=== PATIENT | female | born 1930 | race Two or more races ===

== ENCOUNTER 2018-05-08 12:49 | Emergency (ER) | payer OTHER ==
[~2018-05-08] VITALS: Ht 162.6 cm; Wt 80.3 kg
[~2018-05-08 12:49] MED LIST: A THRU Z ADVAN1 EACH PO; AMLODIPINE BES2.5 MG PO; ANASTROZOLE1 MG PO; ASA81 MG PO; Asa-EC 81MG TAB PO; CALCIUM 600 +1 EAC2 PO; CATAFLAM50 MG PO; CENTRUM CH1 TAB.CHEW PO; FIBER LAX625 MG PO; FLUCONAZOLE PO; GLUCOSAMIN1 TAB.CHEW PO; ISOSORBIDE DIN2.5 MG SL; MIDRIN CAPSULE1 CAP PO; NEURONTIN300 MG PO; NORVASC 10 MG TAB PO; Neurontin PO; PAXIL CR25 MG PO; SEPTRA DS TABLE1 TAB PO; SIMVASTATIN5 MG PO; SODIUM CHLORIDE PO; TOPROL XL50 MG PO; Toprol Xl 25MG TAB PO; VITAMIN B-121000 MC2 SL; ZANTAC300 MG PO; ZoCOR 40MG TABLET PO
== END 2018-05-08 15:51 | disposition home or self-care (01) ==
LOC: ER 12:49
DX: S00.03XA Contusion of scalp, initial encounter (principal); S10.83XA Contusion of other specified part of neck, initial encounter; R42 Dizziness and giddiness; W18.09XA Striking against other object with subsequent fall, initial encounter; Y93.89 Activity, other specified; Y92.512 Supermarket, store or market as the place of occurrence of the external cause; Y99.8 Other external cause status

== ENCOUNTER 2018-09-16 10:32 | Emergency (ER) | payer OTHER ==
[~2018-09-16] VITALS: Ht 165.1 cm; Wt 73.5 kg
== END 2018-09-16 13:44 | disposition home or self-care (01) ==
LOC: ER 10:32
DX: M62.830 Muscle spasm of back (principal)

== ENCOUNTER 2018-11-14 02:11 | Emergency (ER) | payer OTHER ==
[~2018-11-14] VITALS: Ht 165.1 cm; Wt 74.8 kg
[2018-11-14] MEDS ORDERED: VOLTAREN-XR100 MG PO (05:37)
[2018-11-14] MEDS ORDERED: ORPHENADRINE C100 MG PO (05:37)
== END 2018-11-14 14:03 | disposition home or self-care (01) ==
LOC: ER 02:11
DX: M54.5 Low back pain (principal)